=== PATIENT | female | born 1935 | race Caucasian/White ===

== ENCOUNTER 2018-01-11 17:27 | Emergency (ER) | payer MEDICARE, OTHER ==
[~2018-01-11] VITALS: Ht 157.5 cm; Wt 46.0 kg
[~2018-01-11 17:27] MED LIST: CALCTAB98 PO; ENOX30P SQ; OMEGCAP2 OR; OXYC-360 PO; TAB-TAB PO; VITA400C28 PO
[2018-01-11 17:38] VITALS: BP 142/67; PULSE 75; RESP 18; TEMP 98.3; O2SAT 99
--- NOTE | 2018-01-11 17:49 | PD ---
HPI Chief Complaint: Chest Pain Time Seen by Provider: 17:36 Travel History International Travel<30 days: No Contact w/Intl Traveler<30days: No Traveled to known affect area: No History of Present Illness HPI 82-year-old female complains of chest pain. Patient states that the pain started about an hour prior to coming to the emergency room. Patient states the pain is substernal pressure without radiation. Patient denies palpitation nausea diaphoresis. Patient denies any coughing congestion fever chills. EMS was called. Patient was given aspirin and transported to ED for evaluation. Patient states that the chest pain resolved completely by the time she got to the ED. Patient denies any chest pain now. Patient states that she had 2 episodes of chest pain in the past which resolved by itself. Patient denies any history of hypertension, diabetes, hyperlipidemia. Patient is non-smoker. Patient denies family history of heart disease. Patient states that the chest pain is not associated with exertion. PFSH Past Medical History Arthritis: Yes Cancer: No Cardiovascular Problems: Yes Diminished Hearing: No Endocrine: No Genitourinary: No Immune Disorder: No (HX LYMES DISEASE) Implanted Vascular Access Dvce: Yes Musculoskeletal: Yes Neurologic: Yes Psychiatric: No Reproductive: No Respiratory: No Immunizations Current: Yes Migraines: Yes Tetanus Vaccination: Unknown Influenza Vaccination: No Past Surgical History Body Medical Devices: RIGHT CHEEK ON FACE WITH METAL PLATE Joint Replacement: Yes (LEFT GREAT TOE) Other Surgery: Yes Social History Alcohol Use: No Tobacco Use: No Substance Use: No Allergies-Medications (Allergen,Severity, Reaction): Coded Allergies: Sulfa (Sulfonamide Antibiotics) (Unverified Allergy, Severe, EDEMA, ITCHING, 01/11/18) Reported Meds & Prescriptions Reported Meds & Active Scripts Active No Active Prescriptions or Reported Medications Review of Systems General / Constitutional: No: Fever Eyes: No: Visual changes HENT: No: Headaches Cardiovascular: Positive: Chest Pain or Discomfort Respiratory: No: Shortness of Breath Gastrointestinal: No: Abdominal Pain Genitourinary: No: Dysuria Musculoskeletal: No: Pain Skin: No Rash Neurologic: No: Weakness Psychiatric: No: Depression Endocrine: No: Polydipsia Hematologic/Lymphatic: No: Easy Bruising Physical Exam Narrative GENERAL: Well-nourished, well-developed patient. SKIN: Focused skin assessment warm/dry. HEAD: Normocephalic. EYES: No scleral icterus. No injection or drainage. NECK: Supple, trachea midline. No JVD or lymphadenopathy. CARDIOVASCULAR: Regular rate and rhythm without murmurs, gallops, or rubs. RESPIRATORY: Breath sounds equal bilaterally. No accessory muscle use. GASTROINTESTINAL: Abdomen soft, non-tender, nondistended. MUSCULOSKELETAL: No cyanosis, or edema. BACK: Nontender without obvious deformity. No CVA tenderness. Neurologic exam normal. Data Data Last Documented VS Vital Signs Date Time Temp Pulse Resp B/P (MAP) Pulse Ox O2 Delivery O2 Flow Rate FiO2 01/11/18 18:01 97.8 85 17 142/67 (92) 99 Room Air Orders Orders Electrocardiogram (01/11/18 17:40) Complete Blood Count With Diff (01/11/18 17:40) Comprehensive Metabolic Panel (01/11/18 17:40) Creatine Kinase (Cpk) (01/11/18 17:40) Troponin I (01/11/18 17:40) Prothrombin Time / Inr (Pt) (01/11/18 17:40) Act Partial Throm Time (Ptt) (01/11/18 17:40) Urinalysis - C+S If Indicated (01/11/18 17:40) Chest, Single Ap (01/11/18 17:40) Iv Access Insert/Monitor (01/11/18 17:40) Ecg Monitoring (01/11/18 17:40) Oximetry (01/11/18 17:40) Ed Discharge Order (01/11/18 18:58) Labs Laboratory Tests Test 01/11/18 18:00 White Blood Count 9.2 TH/MM3 Red Blood Count 4.27 MIL/MM3 Hemoglobin 12.3 GM/DL Hematocrit 37.6 % Mean Corpuscular Volume 87.9 FL Mean Corpuscular Hemoglobin 28.9 PG Mean Corpuscular Hemoglobin Concent 32.8 % Red Cell Distribution Width 14.2 % Platelet Count 289 TH/MM3 Mean Platelet Volume 9.8 FL Neutrophils (%) (Auto) 78.6 % Lymphocytes (%) (Auto) 11.3 % Monocytes (%) (Auto) 8.5 % Eosinophils (%) (Auto) 1.1 % Basophils (%) (Auto) 0.5 % Neutrophils # (Auto) 7.2 TH/MM3 Lymphocytes # (Auto) 1.0 TH/MM3 Monocytes # (Auto) 0.8 TH/MM3 Eosinophils # (Auto) 0.1 TH/MM3 Basophils # (Auto) 0.0 TH/MM3 CBC Comment DIFF FINAL Differential Comment Prothrombin Time 10.2 SEC Prothromb Time International Ratio 1.0 RATIO Activated Partial Thromboplast Time 25.6 SEC Blood Urea Nitrogen 19 MG/DL Creatinine 0.71 MG/DL Random Glucose 89 MG/DL Total Protein 6.6 GM/DL Albumin 3.5 GM/DL Calcium Level 8.9 MG/DL Alkaline Phosphatase 84 U/L Aspartate Amino Transf (AST/SGOT) 23 U/L Alanine Aminotransferase (ALT/SGPT) 29 U/L Total Bilirubin 0.8 MG/DL Sodium Level 139 MEQ/L Potassium Level 3.6 MEQ/L Chloride Level 105 MEQ/L Carbon Dioxide Level 25.4 MEQ/L Anion Gap 9 MEQ/L Estimat Glomerular Filtration Rate 78 ML/MIN Total Creatine Kinase 176 U/L Troponin I LESS THAN 0.02 NG/ML MDM Medical Decision Making Medical Screen Exam Complete: Yes Emergency Medical Condition: Yes Interpretation(s) 1850 8 PM. EKG shows sinus rhythm nonspecific ST-T wave change. Cardiac enzymes are normal. Last Impressions Chest X-Ray 01/11/18 1740 Signed Impressions: Service Date/Time: December 17:48 - CONCLUSION: No acute cardiopulmonary disease demonstrated. Harvinder Rivas MD Differential Diagnosis Differential diagnosis including musculoskeletal, angina, LA, PE, pneumothorax. Narrative Course 82-year-old female with chest pain. Patient was advised to be admitted to the chest pain center. Patient refused chest pains center admission. Patient was to go home. Diagnosis Primary Impression: Chest pain Qualified Codes: R07.9 - Chest pain, unspecified Patient Instructions: General Instructions Additional Instructions: Follow-up with personal physician. Return if increasing chest pain shortness of breath. Med/Other Pt SpecificInfo: No Meds Exist/No RX given Scripts No Active Prescriptions or Reported Meds Disposition: 01 DISCHARGE HOME Condition: Stable Sharif Vargas MD Jan 11, 2018 17:49
[2018-01-11 18:01] VITALS: BP 142/67; PULSE 85; RESP 17; TEMP 97.8; O2SAT 99
--- NOTE | 2018-01-11 18:09 | RADRPT ---
EXAM DATE/TIME: 01/11/2018 17:48 [facility] COMPARISON: No previous studies available for comparison. INDICATIONS : Chest pain. MEDICAL HISTORY : Myocardial infarction. SURGICAL HISTORY : None. ENCOUNTER: Initial ACUITY: 1 day PAIN SCORE: 4/10 LOCATION: Bilateral chest FINDINGS: A single view of the chest demonstrates the lungs to be symmetrically aerated without evidence of mas s, infiltrate or effusion. The cardiomediastinal contours are unremarkable. Osseous structures are intact. CONCLUSION: No acute cardiopulmonary disease demonstrated. Harvinder Rivas MD on January 11, 2018 at 18:06 Board Certified Radiologist. This report was verified electronically.
[2018-01-11 18:28] LABS: AUTOMATED NEUTROPHIL # 7.2 TH/MM3 (1.8-7.7); BASOPHIL % 0.5 % (0.0-2.0); EOSINOPHIL # 0.1 TH/MM3 (0-0.4); EOSINOPHIL % 1.1 % (0.0-4.0); HEMATOCRIT 37.6 % (35.0-46.0); HEMOGLOBIN 12.3 GM/DL (11.6-15.3); LYMPH % 11.3 % (9.0-44.0); MEAN CELL VOLUME 87.9 FL (80.0-100.0); MEAN CORPUSCULAR HEMOGLOBIN 28.9 PG (27.0-34.0); MEAN CORPUSCULAR HGB CONC 32.8 % (32.0-36.0); MEAN PLATELET VOLUME 9.8 FL (7.0-11.0); MONO % 8.5 % (0.0-8.0); MONOCYTE # 0.8 TH/MM3 (0-0.9); NEUT % 78.6 % (16.0-70.0); PLATELET COUNT 289 TH/MM3 (150-450); RED BLOOD COUNT 4.27 MIL/MM3 (4.00-5.30); RED CELL DISTRIBUTION WIDTH 14.2 % (11.6-17.2); WHITE BLOOD COUNT 9.2 TH/MM3 (4.0-11.0)
[2018-01-11 18:37] LABS: ALBUMIN 3.5 GM/DL (3.4-5.0); AST (GOT) 23 U/L (15-37); BICARBONATE 25.4 MEQ/L (21.0-32.0); BLOOD UREA NITROGEN 19 MG/DL (7-18); CALCIUM 8.9 MG/DL (8.5-10.1); CHLORIDE 105 MEQ/L (98-107); CREATININE 0.71 MG/DL (0.50-1.00); GLOMERULAR FILTRATION RATE 78 ML/MIN (>89); GLUCOSE,RANDOM 89 MG/DL (74-106); SODIUM (NA) 139 MEQ/L (136-145)
[2018-01-11 18:39] LABS: ALT (GPT) 29 U/L (10-53)
[2018-01-11 18:42] LABS: ALKALINE PHOSPHATASE 84 U/L (45-117); TOTAL BILIRUBIN ADULT 0.8 MG/DL (0.2-1.0); TOTAL PROTEIN 6.6 GM/DL (6.4-8.2); TROPONIN I LESS THAN 0.02 NG/ML (0.02-0.05)
[2018-01-11 18:55] LABS: PROTHROMBIN TIME - PATIENT 10.2 SEC (9.8-11.6)
[2018-01-11 19:19] LABS: BACTERIA, URINE RARE /hpf; BILIRUBIN, URINE NEG (NEG); BLOOD, URINE NEG (NEG); GLUCOSE,URINE NEG (NEG); KETONE, URINE NEG (NEG); MUCUS URINE FEW /lpf (OCC); NITRITE,URINE NEG (NEG); URINE COLOR LIGHT-YELLOW (YELLW/STRAW); URINE LEUKOCYTE ESTERASE MOD (NEG)
--- NOTE | 2018-01-12 13:45 | EKG ---
Date Performed: 01/11/2018 Time Performed: 17:47:18 PTAGE: 82 years EKG: Sinus rhythm WITH OCCASIONAL VENTRICULAR PREMATURE COMPLEXES WITH OCCASIONAL SUPRAVENTRICULAR PREMATURE COMPLEXES BORDERLINE ECG PREVIOUS TRACING : 09/20/2011 13.50 Since the previous tracing, no significant change noted DOCTOR: Roland Hernandez Interpretating Date/Time 01/12/2018 13:43:08
== END 2018-01-11 20:03 | disposition home or self-care (01) ==
LOC: NEPC 17:27
DX: R07.9 Chest pain, unspecified (principal); M19.90 Unspecified osteoarthritis, unspecified site; Z88.2 Allergy status to sulfonamides
CPT/HCPCS: 71045; 80053; 81001; 82550; 84484; 85025; 85610; 85730; 93005; 99285